=== PATIENT | male | born 1965 | race Caucasian/White ===

== ENCOUNTER 2020-06-18 16:14 | Inpatient (IN) | payer OTHER ==
[2020-06-18 20:00] LABS: BASO % 0.4 % (0-2.0); EOS % 0.1 % (0-4.5); HEMATOCRIT 39.4 % (35.4-49); HEMOGLOBIN 12.6 GM/dL (11.7-16.9); MCH 26.9 pg (25.7-33.7); MCHC 31.8 g/dl (32.0-35.9); MEAN CELL VOLUME 84.6 fl (80-96); MEAN PLT VOLUME 10.2 fl (7.5-11.1); MONO % 5.2 % (3.8-10.2); NEUT % 90.3 % (42.8-82.8); PLATELET COUNT 186 K/MM3 (134-434); RBC 4.66 M/mm3 (4.00-5.60); RDW 16.4 % (11.9-15.9); VENOUS BASE EXCESS 1.5 mmol/L (-2-2); VENOUS PCO2 44.1 mmHg (38-52); VENOUS PH 7.399 (7.310-7.410)
[2020-06-18 20:06] LABS: INR 1.52 (0.83-1.09); PROTHROMBIN TIME (PATIENT) 18.5 SEC (9.7-13.0)
[2020-06-18 20:18] LABS: CHLORIDE 99 mmol/L (98-107); POTASSIUM 4.2 mmol/L (3.5-5.1); SODIUM 135 mmol/L (136-145)
[2020-06-18 20:20] LABS: ALBUMIN 3.5 g/dl (3.4-5.0); ANION GAP 8 MMOL/L (8-16); BLOOD UREA NITROGEN 23.6 mg/dL (7-18); CALCIUM 8.7 mg/dL (8.5-10.1); CO2 28 mmol/L (21-32); GLUCOSE,RANDOM 126 mg/dL (74-106)
[2020-06-18 20:23] LABS: SGOT/AST 22 U/L (15-37); SGPT/ALT 44 U/L (13-61)
[2020-06-18 20:24] LABS: CREATININE 1.7 mg/dL (0.55-1.3)
[2020-06-18 20:25] LABS: BILIRUBIN,TOTAL 0.8 mg/dL (0.2-1); TOT PROT 7.6 g/dl (6.4-8.2)
[2020-06-18 20:26] LABS: ALK PHOS 124 U/L (45-117)
[2020-06-18 21:37] LABS: LDH 198 U/L (87-246)
[2020-06-18 21:54] LABS: N-TERMINAL BNP 356.2 pg/ml (5-125)
[2020-06-18] MEDS ORDERED: DEXAMETHASONE SOD PHOSPHATE 4 MG/1 ML VIAL IVPUSH ONE ×2 (22:48→22:49)
[2020-06-18] MEDS ORDERED: DEXAMETHASONE SOD PHOSPHATE 10 MG/1 ML VIAL ONE (23:09)
[2020-06-19] MEDS ORDERED: ACETAMINOPHEN 325 MG TABLET (FP) PO PRN (00:37)
[2020-06-19] MEDS ORDERED: FUROSEMIDE 40 MG/4 ML INJECTABLE VIAL IVPUSH ONE (00:40)
[2020-06-19] MEDS ORDERED: AZITHROMYCIN IVPB 500 MG in DEXTROSE 5%-WATER - 250 ML IVPB ONE (00:44)
[2020-06-19] MEDS ORDERED: CEFTRIAXONE 1 GM/50 ML BAG ONE (01:08)
[2020-06-19] MEDS ORDERED: FUROSEMIDE 40 MG/4 ML INJECTABLE VIAL ONE (01:09)
[2020-06-19] MEDS ORDERED: AZITHROMYCIN IVPB 500 MG/250 ML BAG IVPB ONE (01:09)
[2020-06-19] MEDS ORDERED: CEFTRIAXONE 1 GM in DEXTROSE 5%-WATER - 50 ML IVPB ONE (01:11)
[2020-06-19] MEDS: CEFTRIAXONE 1,000 MG in DEXTROSE 5%-WATER - 50 ML IVPB ONE ×2 (01:23→01:53)
[2020-06-19] MEDS ORDERED: ALBUTEROL SO4 0.083% IH SOL 2.5 MG/3 ML VIAL.NEB. NEB PRN (01:40)
[2020-06-19 01:49] LABS: URINE APPEARANCE CLEAR; URINE BILIRUBIN NEGATIVE (NEGATIVE); URINE COLOR YELLOW; URINE GLUCOSE (UA) NEGATIVE (NEGATIVE); URINE KETONE TRACE (NEGATIVE); URINE LEUK ESTERASE NEGATIVE (NEGATIVE); URINE NITRITE NEGATIVE (NEGATIVE); URINE PROTEIN TRACE (NEGATIVE); URINE UROBILINOGEN 0.2 mg/dL (0.2-1.0)
[2020-06-19 03:58] LABS: CREATININE, URINE RANDOM > 300.0 mg/dL (30-150)
[2020-06-19] MEDS ORDERED: HEPARIN NA (PORCINE) 5,000 UNITS/ML 1ML VIAL SQ SCH (06:00)
[2020-06-19] MEDS ORDERED: APIXABAN 5 MG TABLET ONE ×2 (08:13→21:31)
[2020-06-19] MEDS ORDERED: ASCORBIC ACID 500 MG TABLET (FP) ONE ×2 (08:13→21:31)
[2020-06-19] MEDS ORDERED: CHOLECALCIFEROL (VIT D3) 1,000 UNIT (25 MCG) TABLET ONE (08:14)
[2020-06-19] MEDS ORDERED: DEXAMETHASONE SOD PHOSPHATE 4 MG/1 ML VIAL ONE (08:14)
[2020-06-19] MEDS ORDERED: ZINC SULFATE 220 MG CAPSULE (FP) ONE (08:14)
[2020-06-19 08:16] LABS: POTASSIUM 4.1 mmol/L (3.5-5.1)
[2020-06-19 08:19] LABS: BASO % 0.2 % (0-2.0); HEMATOCRIT 37.9 % (35.4-49); HEMOGLOBIN 12.6 GM/dL (11.7-16.9); MCH 27.8 pg (25.7-33.7); MCHC 33.3 g/dl (32.0-35.9); MEAN CELL VOLUME 83.5 fl (80-96); MEAN PLT VOLUME 9.9 fl (7.5-11.1); MONO % 0.9 % (3.8-10.2); NEUT % 94.9 % (42.8-82.8); PLATELET COUNT 175 K/MM3 (134-434); RBC 4.54 M/mm3 (4.00-5.60); RDW 16.1 % (11.9-15.9); WHITE BLOOD COUNT 11.6 K/mm3 (4.0-10.0)
[2020-06-19 08:20] LABS: ALBUMIN 3.3 g/dl (3.4-5.0); BLOOD UREA NITROGEN 24.3 mg/dL (7-18); CALCIUM 8.3 mg/dL (8.5-10.1); MAGNESIUM 1.8 mg/dL (1.8-2.4)
[2020-06-19 08:23] LABS: CREATININE 1.4 mg/dL (0.55-1.3); PHOSPHOROUS 3.2 mg/dL (2.5-4.9)
[2020-06-19 08:25] LABS: BILIRUBIN,TOTAL 0.6 mg/dL (0.2-1); TOT PROT 7.5 g/dl (6.4-8.2)
[2020-06-19] MEDS: CHOLECALCIFEROL (VIT D3) 1,000 UNIT (25 MCG) TABLET PO SCH (09:12)
[2020-06-19] MEDS: APIXABAN 5 MG TABLET PO SCH ×2 (09:12→21:35)
[2020-06-19] MEDS: ZINC SULFATE 220 MG CAPSULE (FP) PO SCH (09:12)
[2020-06-19] MEDS: ASCORBIC ACID 500 MG TABLET (FP) PO SCH ×2 (09:12→21:35)
[2020-06-19 09:46] LABS: ANISOCYTOSIS 1+; PLATELET ESTIMATE NORMAL
[2020-06-19] MEDS ORDERED: DEXAMETHASONE SOD PHOSPHATE 4 MG/1 ML VIAL IVPUSH SCH (10:00)
[2020-06-19] MEDS: TIOTROPIUM BROMIDE 2.5 MCG (SPIRIVA) RESPIMAT INHALER IH SCH (10:06)
[2020-06-19] MEDS ORDERED: ATORVASTATIN CA 10 MG TABLET (FP) ONE (21:32)
[2020-06-19] MEDS: ATORVASTATIN CA 80 MG TABLET (FP) PO SCH (21:35)
[2020-06-19 23:29] VITALS: BMI 39.9
[2020-06-20 09:08] LABS: BASO % 0.1 % (0-2.0); EOS % 0.1 % (0-4.5); HEMATOCRIT 37.1 % (35.4-49); HEMOGLOBIN 12.1 GM/dL (11.7-16.9); LYMPH % 6.9 % (8-40); MCH 27.5 pg (25.7-33.7); MCHC 32.7 g/dl (32.0-35.9); MEAN PLT VOLUME 9.4 fl (7.5-11.1); MONO % 7.6 % (3.8-10.2); NEUT % 85.3 % (42.8-82.8); PLATELET COUNT 182 K/MM3 (134-434); RBC 4.42 M/mm3 (4.00-5.60); WHITE BLOOD COUNT 13.8 K/mm3 (4.0-10.0)
[2020-06-20 09:18] LABS: POTASSIUM 4.2 mmol/L (3.5-5.1)
[2020-06-20 09:36] LABS: CALCIUM 8.6 mg/dL (8.5-10.1)
[2020-06-20 09:38] LABS: TOT PROT 6.9 g/dl (6.4-8.2)
[2020-06-20 09:40] LABS: CREATININE 1.1 mg/dL (0.55-1.3)
[2020-06-20] MEDS ORDERED: cefTRIAXone SODIUM 1 GM VIAL ONE (09:41)
[2020-06-20] MEDS ORDERED: DEXTROSE 5%-WATER - 50 ML IVPB ONE (09:41)
[2020-06-20 09:43] LABS: BILIRUBIN,TOTAL 0.3 mg/dL (0.2-1)
[2020-06-20] MEDS: APIXABAN 5 MG TABLET PO SCH ×2 (09:46→21:56)
[2020-06-20] MEDS: ASCORBIC ACID 500 MG TABLET (FP) PO SCH ×2 (09:46→21:56)
[2020-06-20] MEDS: CEFTRIAXONE 1 GM in DEXTROSE 5%-WATER - 50 ML IVPB SCH (09:46)
[2020-06-20] MEDS: CHOLECALCIFEROL (VIT D3) 1,000 UNIT (25 MCG) TABLET PO SCH (09:46)
[2020-06-20] MEDS: TIOTROPIUM BROMIDE 2.5 MCG (SPIRIVA) RESPIMAT INHALER IH SCH (09:47)
[2020-06-20] MEDS: ZINC SULFATE 220 MG CAPSULE (FP) PO SCH (09:47)
[2020-06-20] MEDS ORDERED: AZITHROMYCIN IVPB 500 MG in DEXTROSE 5%-WATER - 250 ML IVPB SCH (10:00)
[2020-06-20] MEDS ORDERED: PT OWN MED DRAWER 7, Y5N ONE (12:37)
[2020-06-20] MEDS: AZITHROMYCIN IVPB 500 MG/250 ML BAG IVPB SCH (13:54)
[2020-06-20] MEDS: ATORVASTATIN CA 80 MG TABLET (FP) PO SCH (21:57)
[2020-06-21 08:19] LABS: HEMOGLOBIN 11.8 GM/dL (11.7-16.9); MCH 27.5 pg (25.7-33.7); MCHC 32.7 g/dl (32.0-35.9); MEAN CELL VOLUME 84.2 fl (80-96); MEAN PLT VOLUME 9.2 fl (7.5-11.1); PLATELET COUNT 164 K/MM3 (134-434); RBC 4.27 M/mm3 (4.00-5.60); RDW 16.3 % (11.9-15.9)
[2020-06-21] MEDS ORDERED: cefTRIAXone SODIUM 1 GM VIAL ONE (08:28)
[2020-06-21] MEDS ORDERED: DEXTROSE 5%-WATER - 50 ML IVPB ONE (08:29)
[2020-06-21] MEDS: CEFTRIAXONE 1 GM in DEXTROSE 5%-WATER - 50 ML IVPB SCH (09:18)
[2020-06-21] MEDS: ZINC SULFATE 220 MG CAPSULE (FP) PO SCH (09:19)
[2020-06-21] MEDS: CHOLECALCIFEROL (VIT D3) 1,000 UNIT (25 MCG) TABLET PO SCH (09:19)
[2020-06-21] MEDS: ASCORBIC ACID 500 MG TABLET (FP) PO SCH (09:19)
[2020-06-21] MEDS: APIXABAN 5 MG TABLET PO SCH (09:20)
[2020-06-21] MEDS: AZITHROMYCIN IVPB 500 MG/250 ML BAG IVPB SCH (10:50)
[2020-06-21] MEDS: TIOTROPIUM BROMIDE 2.5 MCG (SPIRIVA) RESPIMAT INHALER IH SCH (12:55)
[2020-06-21] MEDS: CLOTRIMAZOLE 10 MG TROCHE PO SCH ×3 (12:56→17:20)
[2020-06-21 14:46] VITALS: BP 131/63; PULSE 70
[2020-06-21 17:12] VITALS: TEMP 98.2
== END 2020-06-21 18:43 | disposition home or self-care (01) | DRG 720 ==
LOC: JER 16:14 → JERBED 23:44 → J7W 06-19 22:51
PROVIDERS: ADMIT Hospitalist; ATTEND Internal Medicine
DX: A41.9 Sepsis, unspecified organism (principal); J15.9 Unspecified bacterial pneumonia; N17.9 Acute kidney failure, unspecified; I11.0 Hypertensive heart disease with heart failure; I50.9 Heart failure, unspecified; Z68.41 Body mass index [BMI] 40.0-44.9, adult; E66.9 Obesity, unspecified; N28.1 Cyst of kidney, acquired; J44.9 Chronic obstructive pulmonary disease, unspecified; Z86.711 Personal history of pulmonary embolism; Z79.01 Long term (current) use of anticoagulants; R73.03 Prediabetes; E78.5 Hyperlipidemia, unspecified; K76.0 Fatty (change of) liver, not elsewhere classified; Z20.822 Contact with and (suspected) exposure to COVID-19
CPT/HCPCS: 36415; 71046-TC-FY; 76775-TC; 80053; 81003; 82550; 82570; 82728; 82803; 83605; 83615; 83735; 83880; 84100; 84156; 84300; 84484; 85025; 85027; 85379; 85610; 85730; 86140; 86769; 87040; 87086; 87804; 87899; 93005; 93010; 93306-TC; 97116-GP; 97161-GP; 99285-25; C9803; U0003; U0005

== ENCOUNTER 2021-10-22 11:38 | Inpatient (IN) | payer OTHER ==
[2021-10-22] MEDS ORDERED: methylPREDNISolone NA SUCC 125 MG/2 ML VIAL IVPUSH ONE (12:23)
[2021-10-22] MEDS ORDERED: methylPREDNISolone NA SUCC 125 MG/2 ML VIAL ONE (12:50)
[2021-10-22] MEDS: ALBUTEROL SO4 2.5/IPRATROPIUM 0.5 INH SOL 3 ML VIAL.NEB. NEB SCH ×3 (13:01→20:37)
[2021-10-22] MEDS ORDERED: FUROSEMIDE 40 MG/4 ML INJECTABLE VIAL IVPUSH ONE (13:14)
[2021-10-22 13:21] LABS: BASO % 0.6 % (0-2.0); EOS % 0.3 % (0-4.5); HEMATOCRIT 38.7 % (35.4-49); HEMOGLOBIN 12.2 GM/dL (11.7-16.9); LYMPH % 6.1 % (8-40); MCH 26.3 pg (25.7-33.7); MCHC 31.6 g/dl (32.0-35.9); MEAN CELL VOLUME 83.3 fl (80-96); MEAN PLT VOLUME 9.6 fl (7.5-11.1); MONO % 5.2 % (3.8-10.2); NEUT % 87.8 % (42.8-82.8); PLATELET COUNT 201 10^3/uL (134-434); RBC 4.64 M/mm3 (4.00-5.60); RDW 16.7 % (11.9-15.9); WHITE BLOOD COUNT 13.7 K/mm3 (4.0-10.0)
[2021-10-22 13:42] LABS: ALBUMIN 2.9 g/dl (3.4-5.0); CALCIUM 8.6 mg/dL (8.5-10.1)
[2021-10-22 13:43] LABS: BLOOD UREA NITROGEN 23.1 mg/dL (7-18)
[2021-10-22 13:46] LABS: CREATININE 1.2 mg/dL (0.55-1.3)
[2021-10-22 13:47] LABS: BILIRUBIN,TOTAL 1.1 mg/dL (0.2-1); TOT PROT 6.3 g/dl (6.4-8.2)
[2021-10-22 13:50] LABS: N-TERMINAL BNP 128.1 pg/ml (5-125)
[2021-10-22] MEDS ORDERED: FUROSEMIDE 40 MG/4 ML INJECTABLE VIAL ONE ×2 (13:54→20:29)
[2021-10-22] MEDS ORDERED: AZITHROMYCIN IVPB 500 MG in DEXTROSE 5%-WATER - 250 ML IVPB ONE (14:21)
[2021-10-22] MEDS ORDERED: CEFTRIAXONE 1,000 MG in DEXTROSE 5%-WATER - 50 ML IVPB ONE (14:43)
[2021-10-22] MEDS ORDERED: CEFTRIAXONE 1 GM/50 ML BAG ONE (14:43)
[2021-10-22] MEDS ORDERED: AZITHROMYCIN IVPB 500 MG/250 ML BAG IVPB ONE (14:44)
[2021-10-22] MEDS ORDERED: ALBUTEROL SO4 HFA INHALER IH PRN (16:01)
[2021-10-22] MEDS ORDERED: ACETAMINOPHEN 325 MG TABLET (FP) PO PRN (17:10)
[2021-10-22] MEDS ORDERED: ALBUTEROL SO4 2.5/IPRATROPIUM 0.5 INH SOL 3 ML VIAL.NEB. NEB SCH (17:15)
[2021-10-22] MEDS ORDERED: methylPREDNISolone NA SUCC 40 MG/1 ML VIAL ONE (18:00)
[2021-10-22] MEDS: methylPREDNISolone NA SUCC 40 MG/1 ML VIAL IVPUSH SCH (18:15)
[2021-10-22] MEDS ORDERED: ALBUTEROL SO4 2.5/IPRATROPIUM 0.5 INH SOL 3 ML VIAL.NEB. NEB ONE (20:28)
[2021-10-22] MEDS: FUROSEMIDE 40 MG/4 ML INJECTABLE VIAL IVPUSH SCH (20:37)
[2021-10-22] MEDS ORDERED: APIXABAN 5 MG TABLET ONE (23:15)
[2021-10-22] MEDS ORDERED: ATORVASTATIN CA 80 MG TABLET (FP) ONE (23:15)
[2021-10-22] MEDS: APIXABAN 5 MG TABLET PO SCH (23:32)
[2021-10-22] MEDS: ATORVASTATIN CA 80 MG TABLET (FP) PO SCH (23:33)
[2021-10-23] MEDS: INSULIN SLIDING SCALE (NOVOLOG) 1 VIAL SQ SCH ×5 (00:30→21:57)
[2021-10-23] MEDS ORDERED: methylPREDNISolone NA SUCC 40 MG/1 ML VIAL ONE ×3 (04:27→21:06)
[2021-10-23] MEDS: methylPREDNISolone NA SUCC 40 MG/1 ML VIAL IVPUSH SCH ×3 (04:36→19:30)
[2021-10-23] MEDS: ALBUTEROL SO4 2.5/IPRATROPIUM 0.5 INH SOL 3 ML VIAL.NEB. NEB SCH ×4 (09:27→21:30)
[2021-10-23] MEDS: CEFTRIAXONE 1 GM in DEXTROSE 5%-WATER - 50 ML IVPB SCH (10:00)
[2021-10-23] MEDS: FUROSEMIDE 40 MG/4 ML INJECTABLE VIAL IVPUSH SCH (10:00)
[2021-10-23] MEDS: AZITHROMYCIN IVPB 250 MG in DEXTROSE 5%-WATER - 250 ML IVPB SCH (10:00)
[2021-10-23] MEDS: APIXABAN 5 MG TABLET PO SCH ×2 (10:00→21:30)
[2021-10-23] MEDS ORDERED: TIOTROPIUM BROMIDE 2.5 MCG (SPIRIVA) RESPIMAT INHALER IH SCH (10:00)
[2021-10-23] MEDS ORDERED: FUROSEMIDE 40 MG TABLET (FP) PO SCH (10:00)
[2021-10-23] MEDS ORDERED: BUDESONIDE/FORMETEROL FUMARATE 160/4.5 mcg INHALER IH SCH (10:00)
[2021-10-23] MEDS: ENALAPRIL MALEATE 10 MG TABLET PO SCH (10:00)
[2021-10-23] MEDS: PANTOPRAZOLE 40 MG TABLET PO SCH (10:00)
[2021-10-23 10:04] LABS: HEMATOCRIT 39.1 % (35.4-49); HEMOGLOBIN 12.5 GM/dL (11.7-16.9); MCH 26.3 pg (25.7-33.7); MCHC 31.9 g/dl (32.0-35.9); MEAN CELL VOLUME 82.6 fl (80-96); MEAN PLT VOLUME 9.2 fl (7.5-11.1); PLATELET COUNT 220 10^3/uL (134-434); RBC 4.73 M/mm3 (4.00-5.60); RDW 16.5 % (11.9-15.9)
[2021-10-23 10:29] LABS: ALBUMIN 3.2 g/dl (3.4-5.0); BLOOD UREA NITROGEN 27.2 mg/dL (7-18); CALCIUM 8.8 mg/dL (8.5-10.1); MAGNESIUM 2.3 mg/dL (1.8-2.4)
[2021-10-23 10:30] LABS: PHOSPHOROUS 2.8 mg/dL (2.5-4.9)
[2021-10-23 10:32] LABS: BILIRUBIN,TOTAL 0.5 mg/dL (0.2-1); CREATININE 1.1 mg/dL (0.55-1.3); TOT PROT 7.1 g/dl (6.4-8.2)
[2021-10-23 10:51] LABS: ANISOCYTOSIS 0; MACROCYTOSIS 0
[2021-10-23] MEDS ORDERED: AZITHROMYCIN IVPB 500 MG/250 ML BAG IVPB ONE (11:15)
[2021-10-23] MEDS ORDERED: FUROSEMIDE 40 MG/4 ML INJECTABLE VIAL ONE (11:17)
[2021-10-23] MEDS ORDERED: PANTOPRAZOLE 40 MG TABLET PO ONE (11:18)
[2021-10-23] MEDS ORDERED: CEFTRIAXONE 1 GM/50 ML BAG ONE (11:20)
[2021-10-23] MEDS ORDERED: ALBUTEROL SO4 2.5/IPRATROPIUM 0.5 INH SOL 3 ML VIAL.NEB. NEB ONE ×3 (11:21→21:35)
[2021-10-23] MEDS ORDERED: ALBUTEROL SO4 2.5/IPRATROPIUM 0.5 INH SOL 3 ML VIAL.NEB. NEB PRN (18:00)
[2021-10-23] MEDS ORDERED: APIXABAN 5 MG TABLET ONE (21:05)
[2021-10-23] MEDS ORDERED: ATORVASTATIN CA 80 MG TABLET (FP) ONE (21:06)
[2021-10-23] MEDS: ATORVASTATIN CA 80 MG TABLET (FP) PO SCH (21:30)
[2021-10-24] MEDS: methylPREDNISolone NA SUCC 40 MG/1 ML VIAL IVPUSH SCH ×3 (02:11→18:08)
[2021-10-24] MEDS: INSULIN SLIDING SCALE (NOVOLOG) 1 VIAL SQ SCH ×4 (06:56→21:41)
[2021-10-24 08:20] LABS: HEMATOCRIT 39.2 % (35.4-49); HEMOGLOBIN 12.3 GM/dL (11.7-16.9); MCHC 31.4 g/dl (32.0-35.9); MEAN PLT VOLUME 9.2 fl (7.5-11.1); PLATELET COUNT 219 10^3/uL (134-434); RBC 4.72 M/mm3 (4.00-5.60); RDW 16.2 % (11.9-15.9); WHITE BLOOD COUNT 14.8 K/mm3 (4.0-10.0)
[2021-10-24] MEDS: ALBUTEROL SO4 2.5/IPRATROPIUM 0.5 INH SOL 3 ML VIAL.NEB. NEB SCH ×4 (08:33→20:15)
[2021-10-24] MEDS: AZITHROMYCIN IVPB 250 MG in DEXTROSE 5%-WATER - 250 ML IVPB SCH (09:12)
[2021-10-24 09:41] LABS: ALBUMIN 3.1 g/dl (3.4-5.0); BLOOD UREA NITROGEN 29.4 mg/dL (7-18)
[2021-10-24 09:42] LABS: CALCIUM 8.9 mg/dL (8.5-10.1)
[2021-10-24 09:43] LABS: CREATININE 1.2 mg/dL (0.55-1.3)
[2021-10-24 09:44] LABS: BILIRUBIN,TOTAL 0.4 mg/dL (0.2-1); MAGNESIUM 2.4 mg/dL (1.8-2.4); TOT PROT 7.1 g/dl (6.4-8.2)
[2021-10-24] MEDS: PANTOPRAZOLE 40 MG TABLET PO SCH (10:23)
[2021-10-24] MEDS: APIXABAN 5 MG TABLET PO SCH ×2 (10:23→21:38)
[2021-10-24] MEDS: ENALAPRIL MALEATE 10 MG TABLET PO SCH (10:23)
[2021-10-24] MEDS: CEFTRIAXONE 1 GM in DEXTROSE 5%-WATER - 50 ML IVPB SCH (10:23)
[2021-10-24] MEDS: FUROSEMIDE 40 MG/4 ML INJECTABLE VIAL IVPUSH SCH (10:23)
[2021-10-24 10:33] LABS: ANISOCYTOSIS 0; HELMET CELLS 0; HOWELL-JOLLY BODIES 0; MACROCYTOSIS 0; OVALOCYTE 0; ROULEAU 0; SICKELED CELLS 0; TARGET CELLS 0; TEAR DROP CELLS 0; TOXIC GRANULATION 0
[2021-10-24 12:29] VITALS: BMI 42.3
[2021-10-24] MEDS: ATORVASTATIN CA 80 MG TABLET (FP) PO SCH (21:38)
[2021-10-25] MEDS: methylPREDNISolone NA SUCC 40 MG/1 ML VIAL IVPUSH SCH ×3 (01:48→21:13)
[2021-10-25] MEDS: INSULIN SLIDING SCALE (NOVOLOG) 1 VIAL SQ SCH ×4 (06:25→21:19)
[2021-10-25] MEDS: ALBUTEROL SO4 2.5/IPRATROPIUM 0.5 INH SOL 3 ML VIAL.NEB. NEB SCH ×4 (07:41→20:19)
[2021-10-25 08:37] LABS: HEMATOCRIT 37.2 % (35.4-49); HEMOGLOBIN 12.1 GM/dL (11.7-16.9); MCH 27.1 pg (25.7-33.7); MCHC 32.6 g/dl (32.0-35.9); MEAN PLT VOLUME 9.1 fl (7.5-11.1); PLATELET COUNT 197 10^3/uL (134-434); RBC 4.48 M/mm3 (4.00-5.60); RDW 16.5 % (11.9-15.9); WHITE BLOOD COUNT 12.7 K/mm3 (4.0-10.0)
[2021-10-25 09:18] LABS: BLOOD UREA NITROGEN 29.4 mg/dL (7-18); CALCIUM 8.5 mg/dL (8.5-10.1); MAGNESIUM 2.5 mg/dL (1.8-2.4)
[2021-10-25 09:21] LABS: CREATININE 1.1 mg/dL (0.55-1.3)
[2021-10-25 09:23] LABS: BILIRUBIN,TOTAL 0.4 mg/dL (0.2-1); TOT PROT 6.7 g/dl (6.4-8.2)
[2021-10-25] MEDS: FUROSEMIDE 40 MG/4 ML INJECTABLE VIAL IVPUSH SCH (09:38)
[2021-10-25] MEDS: APIXABAN 5 MG TABLET PO SCH ×2 (09:38→21:12)
[2021-10-25] MEDS: ENALAPRIL MALEATE 10 MG TABLET PO SCH (09:39)
[2021-10-25] MEDS: CEFTRIAXONE 1 GM in DEXTROSE 5%-WATER - 50 ML IVPB SCH (09:39)
[2021-10-25] MEDS: PANTOPRAZOLE 40 MG TABLET PO SCH (09:39)
[2021-10-25] MEDS: AZITHROMYCIN IVPB 250 MG in DEXTROSE 5%-WATER - 250 ML IVPB SCH (10:30)
[2021-10-25 10:55] LABS: ANISOCYTOSIS 0; MACROCYTOSIS 0; PLATELET ESTIMATE NORMAL
[2021-10-25] MEDS: ATORVASTATIN CA 80 MG TABLET (FP) PO SCH (21:12)
[2021-10-26] MEDS: INSULIN SLIDING SCALE (NOVOLOG) 1 VIAL SQ SCH ×4 (06:52→21:10)
[2021-10-26 07:21] LABS: BASO % 0.1 % (0-2.0); HEMATOCRIT 41.4 % (35.4-49); HEMOGLOBIN 13.4 GM/dL (11.7-16.9); LYMPH % 5.8 % (8-40); MCH 26.9 pg (25.7-33.7); MCHC 32.4 g/dl (32.0-35.9); MEAN PLT VOLUME 9.2 fl (7.5-11.1); MONO % 4.7 % (3.8-10.2); NEUT % 89.4 % (42.8-82.8); PLATELET COUNT 221 10^3/uL (134-434); RBC 4.99 M/mm3 (4.00-5.60); RDW 16.4 % (11.9-15.9); WHITE BLOOD COUNT 11.3 K/mm3 (4.0-10.0)
[2021-10-26 07:43] LABS: CALCIUM 8.8 mg/dL (8.5-10.1)
[2021-10-26 07:44] LABS: ALBUMIN 3.2 g/dl (3.4-5.0); BLOOD UREA NITROGEN 28.2 mg/dL (7-18); MAGNESIUM 2.4 mg/dL (1.8-2.4)
[2021-10-26 07:47] LABS: CREATININE 1.2 mg/dL (0.55-1.3)
[2021-10-26 07:49] LABS: BILIRUBIN,TOTAL 0.9 mg/dL (0.2-1); TOT PROT 7.2 g/dl (6.4-8.2)
[2021-10-26] MEDS: ALBUTEROL SO4 2.5/IPRATROPIUM 0.5 INH SOL 3 ML VIAL.NEB. NEB SCH ×4 (08:28→20:15)
[2021-10-26] MEDS: PANTOPRAZOLE 40 MG TABLET PO SCH (09:30)
[2021-10-26] MEDS: methylPREDNISolone NA SUCC 40 MG/1 ML VIAL IVPUSH SCH (09:30)
[2021-10-26] MEDS: FUROSEMIDE 40 MG/4 ML INJECTABLE VIAL IVPUSH SCH (09:30)
[2021-10-26] MEDS: APIXABAN 5 MG TABLET PO SCH ×2 (09:30→21:09)
[2021-10-26] MEDS: ENALAPRIL MALEATE 10 MG TABLET PO SCH (09:30)
[2021-10-26] MEDS: CEFTRIAXONE 1 GM in DEXTROSE 5%-WATER - 50 ML IVPB SCH (09:30)
[2021-10-26] MEDS: AZITHROMYCIN IVPB 250 MG in DEXTROSE 5%-WATER - 250 ML IVPB SCH (10:21)
[2021-10-26] MEDS ORDERED: ALBUTEROL SO4 2.5/IPRATROPIUM 0.5 INH SOL 3 ML VIAL.NEB. NEB PRN (14:22)
[2021-10-26] MEDS ORDERED: ACETAMINOPHEN 325 MG TABLET (FP) PO PRN (14:22)
[2021-10-26 18:49] VITALS: RESP 18
[2021-10-26] MEDS ORDERED: ATORVASTATIN CA 80 MG TABLET (FP) PO SCH (22:00)
[2021-10-27 05:36] VITALS: TEMP 97.6
[2021-10-27] MEDS: INSULIN SLIDING SCALE (NOVOLOG) 1 VIAL SQ SCH ×2 (07:05→11:23)
[2021-10-27] MEDS: ALBUTEROL SO4 2.5/IPRATROPIUM 0.5 INH SOL 3 ML VIAL.NEB. NEB SCH ×2 (07:53→11:21)
[2021-10-27 09:23] LABS: BASO % 0.2 % (0-2.0); EOS % 1.1 % (0-4.5); HEMATOCRIT 42.8 % (35.4-49); LYMPH % 15.7 % (8-40); MCH 27.1 pg (25.7-33.7); MCHC 32.6 g/dl (32.0-35.9); MEAN PLT VOLUME 8.9 fl (7.5-11.1); PLATELET COUNT 193 10^3/uL (134-434); RBC 5.16 M/mm3 (4.00-5.60); RDW 16.7 % (11.9-15.9); WHITE BLOOD COUNT 9.1 K/mm3 (4.0-10.0)
[2021-10-27 09:36] LABS: ALBUMIN 3.3 g/dl (3.4-5.0); BLOOD UREA NITROGEN 24.4 mg/dL (7-18); CREATININE 1.1 mg/dL (0.55-1.3)
[2021-10-27 09:38] LABS: BILIRUBIN,TOTAL 0.7 mg/dL (0.2-1)
[2021-10-27 09:47] LABS: CALCIUM 8.5 mg/dL (8.5-10.1)
[2021-10-27 09:55] LABS: MAGNESIUM 2.2 mg/dL (1.8-2.4)
[2021-10-27] MEDS ORDERED: PANTOPRAZOLE 40 MG TABLET PO SCH (10:00)
[2021-10-27] MEDS ORDERED: CEFTRIAXONE 1 GM in DEXTROSE 5%-WATER - 50 ML IVPB SCH (10:00)
[2021-10-27] MEDS ORDERED: ENALAPRIL MALEATE 10 MG TABLET PO SCH (10:00)
[2021-10-27] MEDS ORDERED: FUROSEMIDE 40 MG/4 ML INJECTABLE VIAL IVPUSH SCH (10:00)
[2021-10-27] MEDS ORDERED: FUROSEMIDE 40 MG TABLET (FP) PO SCH (10:00)
[2021-10-27] MEDS ORDERED: methylPREDNISolone NA SUCC 40 MG/1 ML VIAL IVPUSH SCH (10:00)
[2021-10-27] MEDS: APIXABAN 5 MG TABLET PO SCH (10:03)
[2021-10-27 13:18] VITALS: BP 140/74; PULSE 100
[2021-10-28] MEDS ORDERED: predniSONE 20 MG TABLET (UD) PO SCH (10:00)
== END 2021-10-27 13:59 | disposition home or self-care (01) | DRG 139 ==
LOC: JER 11:38 → JERBED 13:31 → J4W 10-24 03:00 → J5S 10-26 12:57
PROVIDERS: ADMIT Internal Medicine; ATTEND Nurse Practitioner Acute Care
DX: J18.9 Pneumonia, unspecified organism (principal); I50.33 Acute on chronic diastolic (congestive) heart failure; J44.1 Chronic obstructive pulmonary disease with (acute) exacerbation; I11.0 Hypertensive heart disease with heart failure; E66.01 Morbid (severe) obesity due to excess calories; Z68.41 Body mass index [BMI] 40.0-44.9, adult; J44.0 Chronic obstructive pulmonary disease with (acute) lower respiratory infection; Z86.711 Personal history of pulmonary embolism; Z79.01 Long term (current) use of anticoagulants; E11.9 Type 2 diabetes mellitus without complications; Z79.4 Long term (current) use of insulin
CPT/HCPCS: 0241U-QW; 36415; 71045-TC-FY; 80053; 80061; 82962; 83036; 83735; 83880; 84100; 84443; 84484; 85025; 93005; 93010; 94640; 94761; 99285-25

== ENCOUNTER 2021-11-26 12:51 | Emergency (ER) | payer OTHER ==
[2021-11-26 13:27] VITALS: BP 109/74; PULSE 85; RESP 17; TEMP 97.3; BMI 43.1
[2021-11-26] MEDS ORDERED: FUROSEMIDE 100 MG/10 ML INJECTABLE VIAL IVPB ONE (15:26)
[2021-11-26] MEDS ORDERED: FUROSEMIDE 40 MG/4 ML INJECTABLE VIAL ONE (15:29)
[2021-11-26 15:55] LABS: BASO % 1.1 % (0-2.0); EOS % 1.8 % (0-4.5); HEMATOCRIT 36.7 % (35.4-49); HEMOGLOBIN 11.7 GM/dL (11.7-16.9); LYMPH % 17.9 % (8-40); MCH 26.9 pg (25.7-33.7); MCHC 31.9 g/dl (32.0-35.9); MEAN CELL VOLUME 84.3 fl (80-96); MEAN PLT VOLUME 8.9 fl (7.5-11.1); MONO % 8.3 % (3.8-10.2); NEUT % 70.9 % (42.8-82.8); PLATELET COUNT 228 10^3/uL (134-434); RBC 4.36 M/mm3 (4.00-5.60); RDW 17.5 % (11.9-15.9)
[2021-11-26 16:05] LABS: INR 1.21 (0.83-1.09); PROTHROMBIN TIME (PATIENT) 13.9 SEC (9.7-13.0)
[2021-11-26 16:08] LABS: ACTIVATED PTT 32.2 SECONDS (25.2-36.5)
[2021-11-26 16:18] LABS: CALCIUM 8.7 mg/dL (8.5-10.1)
[2021-11-26 16:19] LABS: ALBUMIN 2.9 g/dl (3.4-5.0); BLOOD UREA NITROGEN 16.8 mg/dL (7-18)
[2021-11-26 16:22] LABS: CREATININE 1.1 mg/dL (0.55-1.3)
[2021-11-26 16:24] LABS: BILIRUBIN,TOTAL 0.4 mg/dL (0.2-1); TOT PROT 6.2 g/dl (6.4-8.2)
[2021-11-26 16:27] LABS: N-TERMINAL BNP 113.9 pg/ml (5-125)
== END 2021-11-26 19:53 | disposition home or self-care (01) ==
LOC: JER 12:51
PROC: 3E033GC Introduction of Other Therapeutic Substance into Peripheral Vein, Percutaneous Approach (ICD-10-PCS; principal; 2021-11-26)
DX: R60.0 Localized edema (principal)
CPT/HCPCS: 36415; 71046-TC-FY; 80053; 83880; 84484; 85025; 85610; 85730; 93005; 93010; 99285-25; C9803-CS; U0003; U0005

== ENCOUNTER 2022-03-10 22:48 | Inpatient (IN) | payer OTHER ==
[2022-03-10] MEDS ORDERED: ALBUTEROL SO4 2.5/IPRATROPIUM 0.5 INH SOL 3 ML VIAL.NEB. NEB ONE ×5 (23:39→23:56)
[2022-03-10] MEDS ORDERED: MAGNESIUM SULF 50% (8.12 MEQ/2 ML-1 GM VIAL) IVPB ONE (23:40)
[2022-03-10] MEDS ORDERED: methylPREDNISolone NA SUCC 125 MG/2 ML VIAL IVPB ONE (23:40)
[2022-03-10] MEDS ORDERED: MAGNESIUM SULFATE IN WATER 2 GM/50 ML IVPB IVPB ONE (23:44)
[2022-03-10] MEDS ORDERED: methylPREDNISolone NA SUCC 125 MG/2 ML VIAL ONE (23:44)
[2022-03-11 00:19] LABS: BASO % 1.1 % (0-2.0); EOS % 2.8 % (0-4.5); HEMATOCRIT 44.6 % (35.4-49); LYMPH % 18.5 % (8-40); MCH 26.9 pg (25.7-33.7); MCHC 31.3 g/dl (32.0-35.9); MEAN CELL VOLUME 85.9 fl (80-96); MEAN PLT VOLUME 8.8 fl (7.5-11.1); MONO % 11.2 % (3.8-10.2); NEUT % 66.4 % (42.8-82.8); PLATELET COUNT 200 10^3/uL (134-434); RBC 5.19 M/mm3 (4.00-5.60); RDW 17.1 % (11.9-15.9); WHITE BLOOD COUNT 7.2 K/mm3 (4.0-10.0)
[2022-03-11 00:27] LABS: INR 1.09 (0.83-1.09); PROTHROMBIN TIME (PATIENT) 12.5 SEC (9.7-13.0)
[2022-03-11 00:29] LABS: ACTIVATED PTT 30.5 SECONDS (25.2-36.5)
[2022-03-11 00:42] LABS: ALBUMIN 3.4 g/dl (3.4-5.0); BLOOD UREA NITROGEN 24.5 mg/dL (7-18); CALCIUM 8.9 mg/dL (8.5-10.1)
[2022-03-11 00:45] LABS: CREATININE 1.6 mg/dL (0.55-1.3)
[2022-03-11] MEDS ORDERED: ALBUTEROL SO4 0.083% IH SOL 2.5 MG/3 ML VIAL.NEB. NEB ONE ×2 (00:46)
[2022-03-11 00:47] LABS: BILIRUBIN,TOTAL 0.3 mg/dL (0.2-1); TOT PROT 7.2 g/dl (6.4-8.2)
[2022-03-11 00:50] LABS: N-TERMINAL BNP 108.5 pg/ml (5-125)
[2022-03-11] MEDS ORDERED: AZITHROMYCIN IVPB 500 MG in DEXTROSE 5%-WATER - 250 ML IVPB ONE (00:54)
[2022-03-11] MEDS ORDERED: CEFTRIAXONE 1,000 MG in DEXTROSE 5%-WATER - 50 ML IVPB ONE (00:55)
[2022-03-11] MEDS ORDERED: CEFTRIAXONE 1 GM/50 ML BAG ONE (01:25)
[2022-03-11 01:37] LABS: VENOUS O2 SATURATION 87.1 % (70-80); VENOUS PCO2 61.1 mmHg (38-52); VENOUS PH 7.296 (7.310-7.410)
[2022-03-11] MEDS ORDERED: AZITHROMYCIN IVPB 500 MG/250 ML BAG IVPB ONE (01:45)
[2022-03-11] MEDS ORDERED: ALBUTEROL SO4 2.5/IPRATROPIUM 0.5 INH SOL 3 ML VIAL.NEB. NEB PRN (03:45)
[2022-03-11] MEDS ORDERED: FUROSEMIDE 40 MG/4 ML INJECTABLE VIAL ONE (06:07)
[2022-03-11 06:21] LABS: CALCIUM 8.5 mg/dL (8.5-10.1)
[2022-03-11] MEDS: FUROSEMIDE 40 MG/4 ML INJECTABLE VIAL IVPUSH SCH ×2 (06:21→14:51)
[2022-03-11 06:22] LABS: ALBUMIN 3.2 g/dl (3.4-5.0); BLOOD UREA NITROGEN 24.9 mg/dL (7-18); MAGNESIUM 2.3 mg/dL (1.8-2.4)
[2022-03-11 06:25] LABS: CREATININE 1.4 mg/dL (0.55-1.3); PHOSPHOROUS 4.5 mg/dL (2.5-4.9)
[2022-03-11 06:26] LABS: BILIRUBIN,TOTAL 0.4 mg/dL (0.2-1)
[2022-03-11 06:57] LABS: HEMATOCRIT 44.3 % (35.4-49); HEMOGLOBIN 13.5 GM/dL (11.7-16.9); MCH 26.4 pg (25.7-33.7); MCHC 30.5 g/dl (32.0-35.9); MEAN CELL VOLUME 86.4 fl (80-96); MEAN PLT VOLUME 9.5 fl (7.5-11.1); PLATELET COUNT 191 10^3/uL (134-434); RBC 5.13 M/mm3 (4.00-5.60); RDW 16.5 % (11.9-15.9); WHITE BLOOD COUNT 8.3 K/mm3 (4.0-10.0)
[2022-03-11 07:54] VITALS: BMI 43.2
[2022-03-11] MEDS: INSULIN SLIDING SCALE (NOVOLOG) 1 VIAL SQ SCH ×4 (08:01→23:22)
[2022-03-11] MEDS: LEVALBUTEROL HCL 0.63 MG/3 ML VIAL.NEB. IH SCH ×3 (09:54→20:06)
[2022-03-11] MEDS ORDERED: AZITHROMYCIN IVPB 500 MG in DEXTROSE 5%-WATER - 250 ML IVPB SCH (10:00)
[2022-03-11] MEDS: AZITHROMYCIN IVPB 500 MG/250 ML BAG IVPB SCH (10:04)
[2022-03-11] MEDS: methylPREDNISolone NA SUCC 40 MG/1 ML VIAL IVPUSH SCH ×2 (10:05→17:06)
[2022-03-11] MEDS: APIXABAN 5 MG TABLET PO SCH ×2 (10:05→23:01)
[2022-03-11] MEDS ORDERED: INSULIN (NOVOLOG) ASPART 100 UNITS/ML 10ML VIAL ONE ×2 (11:10→23:15)
[2022-03-11 11:21] LABS: ANISOCYTOSIS 0; MACROCYTOSIS 0
[2022-03-11] MEDS: BUDESONIDE/FORMETEROL FUMARATE 160/4.5 mcg INHALER IH SCH ×2 (11:33→23:01)
[2022-03-11] MEDS ORDERED: ATORVASTATIN CA 40 MG TABLET (FP) PO SCH (22:00)
[2022-03-11] MEDS ORDERED: ATORVASTATIN CA 80 MG TABLET (FP) PO SCH (22:00)
[2022-03-12] MEDS: methylPREDNISolone NA SUCC 40 MG/1 ML VIAL IVPUSH SCH ×3 (02:34→17:50)
[2022-03-12] MEDS: FUROSEMIDE 40 MG/4 ML INJECTABLE VIAL IVPUSH SCH ×2 (07:08→14:59)
[2022-03-12] MEDS: INSULIN SLIDING SCALE (NOVOLOG) 1 VIAL SQ SCH ×4 (07:59→21:02)
[2022-03-12] MEDS: LEVALBUTEROL HCL 0.63 MG/3 ML VIAL.NEB. IH SCH ×3 (08:30→20:05)
[2022-03-12] MEDS: BUDESONIDE/FORMETEROL FUMARATE 160/4.5 mcg INHALER IH SCH ×2 (10:38→22:48)
[2022-03-12] MEDS: APIXABAN 5 MG TABLET PO SCH ×2 (10:38→22:45)
[2022-03-12] MEDS: AZITHROMYCIN IVPB 500 MG/250 ML BAG IVPB SCH (10:38)
[2022-03-12 10:48] LABS: HEMATOCRIT 45.5 % (35.4-49); MCH 26.3 pg (25.7-33.7); MCHC 30.7 g/dl (32.0-35.9); MEAN CELL VOLUME 85.7 fl (80-96); MEAN PLT VOLUME 8.9 fl (7.5-11.1); PLATELET COUNT 193 10^3/uL (134-434); RBC 5.31 M/mm3 (4.00-5.60); RDW 16.7 % (11.9-15.9); WHITE BLOOD COUNT 9.7 K/mm3 (4.0-10.0)
[2022-03-12 11:06] LABS: CHLORIDE 94 mmol/L (98-107); SODIUM 135 mmol/L (136-145)
[2022-03-12 11:14] LABS: ALBUMIN 3.5 g/dl (3.4-5.0); ANION GAP 13 MMOL/L (8-16); BLOOD UREA NITROGEN 36.8 mg/dL (7-18); CALCIUM 8.9 mg/dL (8.5-10.1); CO2 28 mmol/L (21-32); MAGNESIUM 2.2 mg/dL (1.8-2.4)
[2022-03-12 11:17] LABS: CREATININE 1.3 mg/dL (0.55-1.3); SGPT/ALT 95 U/L (13-61)
[2022-03-12 11:18] LABS: SGOT/AST 35 U/L (15-37)
[2022-03-12 11:19] LABS: ALK PHOS 129 U/L (45-117); BILIRUBIN,TOTAL 0.4 mg/dL (0.2-1); GLUCOSE,RANDOM 420 mg/dL (74-106); TOT PROT 7.5 g/dl (6.4-8.2)
[2022-03-12 12:10] LABS: PH,URINE 5.5 (5.0-8.0); URINE APPEARANCE CLEAR; URINE BILIRUBIN NEGATIVE (NEGATIVE); URINE COLOR YELLOW; URINE GLUCOSE (UA) 3+ (NEGATIVE); URINE KETONE NEGATIVE (NEGATIVE); URINE LEUK ESTERASE NEGATIVE (NEGATIVE); URINE NITRITE NEGATIVE (NEGATIVE); URINE PROTEIN NEGATIVE (NEGATIVE); URINE UROBILINOGEN 0.2 mg/dL (0.2-1.0)
[2022-03-12] MEDS ORDERED: INSULIN (NOVOLOG) ASPART 100 UNITS/ML 10ML VIAL ONE (12:18)
[2022-03-12] MEDS ORDERED: INSULIN (NOVOLOG) ASPART 100 UNITS/ML 10ML VIAL SQ ONE (22:14)
[2022-03-12] MEDS: INSULIN (LEVEMIR) 100 UNITS/ML UNITS SQ SCH (22:47)
[2022-03-13] MEDS: methylPREDNISolone NA SUCC 40 MG/1 ML VIAL IVPUSH SCH ×3 (02:29→17:10)
[2022-03-13] MEDS: FUROSEMIDE 40 MG/4 ML INJECTABLE VIAL IVPUSH SCH ×2 (06:57→13:51)
[2022-03-13] MEDS: INSULIN (LEVEMIR) 100 UNITS/ML UNITS SQ SCH ×2 (07:01→21:49)
[2022-03-13] MEDS: INSULIN SLIDING SCALE (NOVOLOG) 1 VIAL SQ SCH ×4 (07:03→21:50)
[2022-03-13] MEDS: LEVALBUTEROL HCL 0.63 MG/3 ML VIAL.NEB. IH SCH ×3 (08:07→20:07)
[2022-03-13 10:34] LABS: HEMOGLOBIN 14.9 GM/dL (11.7-16.9); MCH 26.5 pg (25.7-33.7); MCHC 30.9 g/dl (32.0-35.9); MEAN CELL VOLUME 85.5 fl (80-96); MEAN PLT VOLUME 9.3 fl (7.5-11.1); PLATELET COUNT 213 10^3/uL (134-434); RBC 5.61 M/mm3 (4.00-5.60); RDW 16.3 % (11.9-15.9)
[2022-03-13 11:05] LABS: ALBUMIN 3.8 g/dl (3.4-5.0); BLOOD UREA NITROGEN 34.7 mg/dL (7-18); CALCIUM 8.9 mg/dL (8.5-10.1); MAGNESIUM 2.4 mg/dL (1.8-2.4)
[2022-03-13 11:07] LABS: CREATININE 1.3 mg/dL (0.55-1.3); PHOSPHOROUS 4.2 mg/dL (2.5-4.9)
[2022-03-13 11:09] LABS: BILIRUBIN,TOTAL 0.6 mg/dL (0.2-1); TOT PROT 7.9 g/dl (6.4-8.2)
[2022-03-13] MEDS: AZITHROMYCIN IVPB 500 MG/250 ML BAG IVPB SCH (11:13)
[2022-03-13] MEDS: APIXABAN 5 MG TABLET PO SCH ×2 (11:14→21:49)
[2022-03-13] MEDS: BUDESONIDE/FORMETEROL FUMARATE 160/4.5 mcg INHALER IH SCH ×2 (11:24→21:50)
[2022-03-13] MEDS ORDERED: LEVALBUTEROL HCL 0.63 MG/3 ML VIAL.NEB. IH ONE (15:11)
[2022-03-13] MEDS ORDERED: INSULIN (NOVOLOG) ASPART 100 UNITS/ML 10ML VIAL SQ ONE (17:10)
[2022-03-13] MEDS ORDERED: INSULIN (NOVOLOG) ASPART 100 UNITS/ML 10ML VIAL ONE (21:09)
[2022-03-14] MEDS: methylPREDNISolone NA SUCC 40 MG/1 ML VIAL IVPUSH SCH ×2 (01:53→09:30)
[2022-03-14] MEDS: INSULIN (LEVEMIR) 100 UNITS/ML UNITS SQ SCH (06:34)
[2022-03-14] MEDS: FUROSEMIDE 40 MG/4 ML INJECTABLE VIAL IVPUSH SCH ×2 (06:34→13:15)
[2022-03-14] MEDS: INSULIN SLIDING SCALE (NOVOLOG) 1 VIAL SQ SCH ×2 (06:38→11:41)
[2022-03-14] MEDS: LEVALBUTEROL HCL 0.63 MG/3 ML VIAL.NEB. IH SCH ×2 (08:04→13:37)
[2022-03-14] MEDS: AZITHROMYCIN IVPB 500 MG/250 ML BAG IVPB SCH (09:29)
[2022-03-14] MEDS: APIXABAN 5 MG TABLET PO SCH (09:30)
[2022-03-14] MEDS: BUDESONIDE/FORMETEROL FUMARATE 160/4.5 mcg INHALER IH SCH (09:30)
[2022-03-14 10:50] LABS: HEMATOCRIT 44.7 % (35.4-49); LYMPH % 7.7 % (8-40); MCH 26.6 pg (25.7-33.7); MCHC 31.3 g/dl (32.0-35.9); MEAN CELL VOLUME 85.1 fl (80-96); MEAN PLT VOLUME 9.2 fl (7.5-11.1); MONO % 5.6 % (3.8-10.2); NEUT % 86.7 % (42.8-82.8); PLATELET COUNT 189 10^3/uL (134-434); RBC 5.25 M/mm3 (4.00-5.60); RDW 16.1 % (11.9-15.9); WHITE BLOOD COUNT 10.5 K/mm3 (4.0-10.0)
[2022-03-14 11:10] LABS: CHLORIDE 90 mmol/L (98-107); SODIUM 132 mmol/L (136-145)
[2022-03-14 11:20] LABS: ALBUMIN 3.4 g/dl (3.4-5.0); ANION GAP 14 MMOL/L (8-16); CALCIUM 8.7 mg/dL (8.5-10.1); CO2 29 mmol/L (21-32); MAGNESIUM 2.3 mg/dL (1.8-2.4)
[2022-03-14 11:23] LABS: CREATININE 1.3 mg/dL (0.55-1.3); PHOSPHOROUS 4.1 mg/dL (2.5-4.9); SGOT/AST 67 U/L (15-37); SGPT/ALT 107 U/L (13-61)
[2022-03-14 11:24] LABS: BILIRUBIN,TOTAL 0.6 mg/dL (0.2-1); TOT PROT 7.2 g/dl (6.4-8.2)
[2022-03-14 11:27] LABS: ALK PHOS 116 U/L (45-117)
[2022-03-14 11:34] LABS: GLUCOSE,RANDOM 493 mg/dL (74-106)
[2022-03-14] MEDS ORDERED: INSULIN (NOVOLOG) ASPART 100 UNITS/ML 10ML VIAL SQ ONE (12:37)
[2022-03-14 15:50] VITALS: BP 136/91; PULSE 91; RESP 18; TEMP 97.5
[2022-03-14] MEDS ORDERED: methylPREDNISolone NA SUCC 40 MG/1 ML VIAL IVPUSH SCH (22:00)
== END 2022-03-14 16:10 | disposition home health service (06) | DRG 140 ==
LOC: JER 22:48 → JERBED 03-11 02:10 → J8W 03-11 07:23
PROVIDERS: ADMIT Internal Medicine; ATTEND Internal Medicine
DX: J44.0 Chronic obstructive pulmonary disease with (acute) lower respiratory infection (principal); I50.30 Unspecified diastolic (congestive) heart failure; B97.4 Respiratory syncytial virus as the cause of diseases classified elsewhere; E11.65 Type 2 diabetes mellitus with hyperglycemia; Z68.41 Body mass index [BMI] 40.0-44.9, adult; E66.01 Morbid (severe) obesity due to excess calories; E87.70 Fluid overload, unspecified; R60.0 Localized edema; R74.01 Elevation of levels of liver transaminase levels; E78.5 Hyperlipidemia, unspecified; K21.9 Gastro-esophageal reflux disease without esophagitis
CPT/HCPCS: 0241U-QW; 36415; 71045-TC-FY; 76705-TC; 80053; 81003; 82550; 82803; 82962; 83735; 83880; 84100; 84484; 85025; 85027; 85610; 85730; 86705; 86803; 87086; 87340; 87517; 93005; 93010; 94761; 99291

== ENCOUNTER 2022-07-13 17:59 | Inpatient (IN) | payer OTHER ==
[2022-07-13] MEDS ORDERED: ALBUTEROL SO4 2.5/IPRATROPIUM 0.5 INH SOL 3 ML VIAL.NEB. NEB ONE ×2 (18:25→18:47)
[2022-07-13] MEDS ORDERED: DEXAMETHASONE SOD PHOSPHATE 10 MG/1 ML VIAL IVPUSH ONE (18:25)
[2022-07-13] MEDS ORDERED: DEXAMETHASONE SOD PHOSPHATE 10 MG/1 ML VIAL ONE (18:47)
[2022-07-13 18:50] LABS: BASO % 0.9 % (0-2.0); EOS % 4.2 % (0-4.5); HEMATOCRIT 41.3 % (35.4-49); HEMOGLOBIN 13.6 GM/dL (11.7-16.9); LYMPH % 13.9 % (8-40); MCH 28.1 pg (25.7-33.7); MCHC 32.9 g/dl (32.0-35.9); MEAN CELL VOLUME 85.6 fl (80-96); MEAN PLT VOLUME 9.5 fl (7.5-11.1); MONO % 10.4 % (3.8-10.2); NEUT % 70.6 % (42.8-82.8); PLATELET COUNT 168 10^3/uL (134-434); RBC 4.83 M/mm3 (4.00-5.60); RDW 16.3 % (11.9-15.9); WHITE BLOOD COUNT 6.4 K/mm3 (4.0-10.0)
[2022-07-13 19:14] LABS: POTASSIUM 3.9 mmol/L (3.5-5.1)
[2022-07-13 19:17] LABS: CALCIUM 8.5 mg/dL (8.5-10.1)
[2022-07-13] MEDS ORDERED: CEFTRIAXONE 1,000 MG in DEXTROSE 5%-WATER - 50 ML IVPB ONE (19:17)
[2022-07-13] MEDS ORDERED: AZITHROMYCIN IVPB 500 MG in DEXTROSE 5%-WATER - 250 ML IVPB ONE (19:17)
[2022-07-13 19:18] LABS: ALBUMIN 3.3 g/dl (3.4-5.0); BLOOD UREA NITROGEN 9.5 mg/dL (7-18)
[2022-07-13 19:21] LABS: CREATININE 0.8 mg/dL (0.55-1.3)
[2022-07-13 19:22] LABS: BILIRUBIN,TOTAL 0.5 mg/dL (0.2-1)
[2022-07-13] MEDS ORDERED: CEFTRIAXONE 1 GM/50 ML BAG ONE (19:22)
[2022-07-13 19:23] LABS: TOT PROT 6.8 g/dl (6.4-8.2)
[2022-07-13] MEDS ORDERED: AZITHROMYCIN IVPB 500 MG/250 ML BAG IVPB ONE (19:47)
[2022-07-13 19:54] LABS: INR 1.29 (0.83-1.09); PROTHROMBIN TIME (PATIENT) 14.9 SEC (9.7-13.0)
[2022-07-13 19:56] LABS: ACTIVATED PTT 32.6 SECONDS (25.2-36.5)
[2022-07-13] MEDS ORDERED: SODIUM CHLORIDE FOR INHALATION 3 ML VIAL.NEB IH ONE (21:35)
[2022-07-13] MEDS ORDERED: ACETAMINOPHEN 325 MG TABLET (FP) PO PRN (22:29)
[2022-07-13] MEDS ORDERED: ONDANSETRON 4 MG/2 ML VIAL IVPUSH PRN (22:32)
[2022-07-13] MEDS: BUDESONIDE/FORMETEROL FUMARATE 160/4.5 mcg INHALER IH SCH (23:29)
[2022-07-14] MEDS: APIXABAN 5 MG TABLET PO SCH ×3 (00:56→21:18)
[2022-07-14] MEDS: methylPREDNISolone NA SUCC 40 MG/1 ML VIAL IVPUSH SCH ×3 (03:00→17:38)
[2022-07-14 03:28] VITALS: BMI 42.5
[2022-07-14] MEDS ORDERED: FUROSEMIDE 40 MG TABLET (FP) PO SCH (06:00)
[2022-07-14] MEDS: INSULIN SLIDING SCALE (NOVOLOG) 1 VIAL SQ SCH ×4 (06:12→21:19)
[2022-07-14] MEDS: ALBUTEROL SO4 2.5/IPRATROPIUM 0.5 INH SOL 3 ML VIAL.NEB. NEB SCH ×4 (08:00→20:03)
[2022-07-14] MEDS ORDERED: FUROSEMIDE 40 MG/4 ML INJECTABLE VIAL IVPUSH ONE (08:12)
[2022-07-14] MEDS ORDERED: AZITHROMYCIN IVPB 250 MG in DEXTROSE 5%-WATER - 250 ML IVPB SCH (10:00)
[2022-07-14] MEDS ORDERED: CEFTRIAXONE 1 GM in DEXTROSE 5%-WATER - 50 ML IVPB SCH (10:00)
[2022-07-14] MEDS: TIOTROPIUM BROMIDE 2.5 MCG (SPIRIVA) RESPIMAT INHALER IH SCH (10:34)
[2022-07-14] MEDS: BUDESONIDE/FORMETEROL FUMARATE 160/4.5 mcg INHALER IH SCH ×2 (10:44→21:21)
[2022-07-14 11:21] LABS: HEMOGLOBIN 13.7 GM/dL (11.7-16.9); MCH 28.4 pg (25.7-33.7); MCHC 33.3 g/dl (32.0-35.9); MEAN CELL VOLUME 85.4 fl (80-96); MEAN PLT VOLUME 8.8 fl (7.5-11.1); PLATELET COUNT 187 10^3/uL (134-434); RDW 15.9 % (11.9-15.9)
[2022-07-14 11:42] LABS: POTASSIUM 3.7 mmol/L (3.5-5.1)
[2022-07-14 11:48] LABS: ALBUMIN 3.3 g/dl (3.4-5.0); CALCIUM 8.5 mg/dL (8.5-10.1)
[2022-07-14 11:52] LABS: CREATININE 0.9 mg/dL (0.55-1.3)
[2022-07-14 11:54] LABS: BILIRUBIN,TOTAL 0.4 mg/dL (0.2-1); TOT PROT 7.1 g/dl (6.4-8.2)
[2022-07-14] MEDS: AZITHROMYCIN 250 MG TABLET PO SCH (12:14)
[2022-07-14] MEDS: FUROSEMIDE 40 MG TABLET (FP) PO SCH (13:37)
[2022-07-14] MEDS: INSULIN (LEVEMIR) 100 UNITS/ML UNITS SQ SCH (21:18)
[2022-07-15] MEDS: methylPREDNISolone NA SUCC 40 MG/1 ML VIAL IVPUSH SCH ×3 (01:56→17:13)
[2022-07-15] MEDS: INSULIN SLIDING SCALE (NOVOLOG) 1 VIAL SQ SCH ×4 (06:14→21:19)
[2022-07-15] MEDS: FUROSEMIDE 40 MG TABLET (FP) PO SCH ×2 (06:14→13:36)
[2022-07-15] MEDS: ALBUTEROL SO4 2.5/IPRATROPIUM 0.5 INH SOL 3 ML VIAL.NEB. NEB SCH ×4 (08:30→20:04)
[2022-07-15] MEDS: APIXABAN 5 MG TABLET PO SCH ×2 (09:23→21:15)
[2022-07-15] MEDS: INSULIN (LEVEMIR) 100 UNITS/ML UNITS SQ SCH ×2 (09:23→21:20)
[2022-07-15] MEDS: AZITHROMYCIN 250 MG TABLET PO SCH (09:24)
[2022-07-15] MEDS: BUDESONIDE/FORMETEROL FUMARATE 160/4.5 mcg INHALER IH SCH ×2 (09:24→21:16)
[2022-07-15] MEDS: TIOTROPIUM BROMIDE 2.5 MCG (SPIRIVA) RESPIMAT INHALER IH SCH (09:24)
[2022-07-15 11:26] LABS: BASO % 0.1 % (0-2.0); HEMATOCRIT 42.7 % (35.4-49); HEMOGLOBIN 13.7 GM/dL (11.7-16.9); LYMPH % 5.8 % (8-40); MCH 27.6 pg (25.7-33.7); MCHC 32.2 g/dl (32.0-35.9); MEAN CELL VOLUME 85.8 fl (80-96); MEAN PLT VOLUME 9.6 fl (7.5-11.1); MONO % 4.6 % (3.8-10.2); NEUT % 89.5 % (42.8-82.8); PLATELET COUNT 222 10^3/uL (134-434); RBC 4.97 M/mm3 (4.00-5.60); RDW 16.3 % (11.9-15.9); WHITE BLOOD COUNT 11.6 K/mm3 (4.0-10.0)
[2022-07-15 11:54] LABS: POTASSIUM 3.8 mmol/L (3.5-5.1)
[2022-07-15 12:00] LABS: ALBUMIN 3.4 g/dl (3.4-5.0); BLOOD UREA NITROGEN 22.8 mg/dL (7-18); CALCIUM 8.7 mg/dL (8.5-10.1)
[2022-07-15 12:01] LABS: MAGNESIUM 1.8 mg/dL (1.8-2.4)
[2022-07-15 12:03] LABS: CREATININE 1.1 mg/dL (0.55-1.3); PHOSPHOROUS 2.5 mg/dL (2.5-4.9); TOT PROT 7.3 g/dl (6.4-8.2)
[2022-07-15 12:07] LABS: BILIRUBIN,TOTAL 0.5 mg/dL (0.2-1)
[2022-07-15] MEDS ORDERED: FAMOTIDINE 10 MG TABLET PO ONE (20:14)
[2022-07-16] MEDS: methylPREDNISolone NA SUCC 40 MG/1 ML VIAL IVPUSH SCH ×3 (01:45→17:11)
[2022-07-16] MEDS: FUROSEMIDE 40 MG TABLET (FP) PO SCH ×2 (05:28→13:37)
[2022-07-16] MEDS: INSULIN SLIDING SCALE (NOVOLOG) 1 VIAL SQ SCH ×4 (06:34→21:27)
[2022-07-16] MEDS: ALBUTEROL SO4 2.5/IPRATROPIUM 0.5 INH SOL 3 ML VIAL.NEB. NEB SCH ×4 (08:16→20:05)
[2022-07-16] MEDS: AZITHROMYCIN 250 MG TABLET PO SCH (09:31)
[2022-07-16] MEDS: APIXABAN 5 MG TABLET PO SCH ×2 (09:31→21:22)
[2022-07-16] MEDS: INSULIN (LEVEMIR) 100 UNITS/ML UNITS SQ SCH ×2 (09:33→21:25)
[2022-07-16] MEDS: TIOTROPIUM BROMIDE 2.5 MCG (SPIRIVA) RESPIMAT INHALER IH SCH (09:34)
[2022-07-16] MEDS: BUDESONIDE/FORMETEROL FUMARATE 160/4.5 mcg INHALER IH SCH ×2 (09:37→21:22)
[2022-07-16] MEDS: FAMOTIDINE 10 MG TABLET PO SCH (10:42)
[2022-07-16] MEDS ORDERED: MELATONIN 5 MG TABLETS PO ONE (23:08)
[2022-07-17] MEDS: methylPREDNISolone NA SUCC 40 MG/1 ML VIAL IVPUSH SCH ×3 (01:12→21:21)
[2022-07-17] MEDS: FUROSEMIDE 40 MG TABLET (FP) PO SCH ×2 (05:36→13:56)
[2022-07-17] MEDS: INSULIN SLIDING SCALE (NOVOLOG) 1 VIAL SQ SCH ×4 (06:12→21:22)
[2022-07-17] MEDS: ALBUTEROL SO4 2.5/IPRATROPIUM 0.5 INH SOL 3 ML VIAL.NEB. NEB SCH ×4 (08:00→20:02)
[2022-07-17] MEDS: BUDESONIDE/FORMETEROL FUMARATE 160/4.5 mcg INHALER IH SCH ×2 (09:41→21:30)
[2022-07-17] MEDS: AZITHROMYCIN 250 MG TABLET PO SCH (09:42)
[2022-07-17] MEDS: APIXABAN 5 MG TABLET PO SCH ×2 (09:42→21:30)
[2022-07-17] MEDS: FAMOTIDINE 10 MG TABLET PO SCH (09:42)
[2022-07-17] MEDS: INSULIN (LEVEMIR) 100 UNITS/ML UNITS SQ SCH ×2 (09:45→21:21)
[2022-07-17] MEDS: TIOTROPIUM BROMIDE 2.5 MCG (SPIRIVA) RESPIMAT INHALER IH SCH (11:13)
[2022-07-17] MEDS ORDERED: methylPREDNISolone NA SUCC 40 MG/1 ML VIAL IVPUSH SCH (14:15)
[2022-07-17] MEDS ORDERED: MELATONIN 5 MG TABLETS PO SCH (22:00)
[2022-07-18] MEDS: FUROSEMIDE 40 MG TABLET (FP) PO SCH ×2 (05:31→13:45)
[2022-07-18] MEDS: INSULIN SLIDING SCALE (NOVOLOG) 1 VIAL SQ SCH ×3 (06:09→16:21)
[2022-07-18 06:21] VITALS: RESP 18
[2022-07-18] MEDS: ALBUTEROL SO4 2.5/IPRATROPIUM 0.5 INH SOL 3 ML VIAL.NEB. NEB SCH ×3 (07:45→15:10)
[2022-07-18 08:25] LABS: BASO % 0.2 % (0-2.0); HEMATOCRIT 41.4 % (35.4-49); HEMOGLOBIN 13.9 GM/dL (11.7-16.9); LYMPH % 7.3 % (8-40); MCH 28.5 pg (25.7-33.7); MCHC 33.5 g/dl (32.0-35.9); MEAN CELL VOLUME 85.1 fl (80-96); MEAN PLT VOLUME 9.9 fl (7.5-11.1); MONO % 4.4 % (3.8-10.2); NEUT % 88.1 % (42.8-82.8); PLATELET COUNT 187 10^3/uL (134-434); RBC 4.87 M/mm3 (4.00-5.60); RDW 15.8 % (11.9-15.9); WHITE BLOOD COUNT 10.3 K/mm3 (4.0-10.0)
[2022-07-18 08:31] LABS: POTASSIUM 3.7 mmol/L (3.5-5.1)
[2022-07-18 08:38] LABS: ALBUMIN 3.3 g/dl (3.4-5.0); CALCIUM 8.4 mg/dL (8.5-10.1)
[2022-07-18 08:39] LABS: BLOOD UREA NITROGEN 32.2 mg/dL (7-18)
[2022-07-18 08:43] LABS: BILIRUBIN,TOTAL 0.6 mg/dL (0.2-1); TOT PROT 6.8 g/dl (6.4-8.2)
[2022-07-18] MEDS: TIOTROPIUM BROMIDE 2.5 MCG (SPIRIVA) RESPIMAT INHALER IH SCH (09:17)
[2022-07-18] MEDS: BUDESONIDE/FORMETEROL FUMARATE 160/4.5 mcg INHALER IH SCH (09:17)
[2022-07-18] MEDS: FAMOTIDINE 10 MG TABLET PO SCH (09:18)
[2022-07-18] MEDS: APIXABAN 5 MG TABLET PO SCH (09:18)
[2022-07-18] MEDS: methylPREDNISolone NA SUCC 40 MG/1 ML VIAL IVPUSH SCH (09:18)
[2022-07-18] MEDS: INSULIN (LEVEMIR) 100 UNITS/ML UNITS SQ SCH (09:20)
[2022-07-18 15:50] VITALS: BP 132/72; PULSE 84; TEMP 98.3
== END 2022-07-18 17:35 | disposition home or self-care (01) | DRG 194 ==
LOC: JER 17:59 → JERBED 22:33 → J5S 07-14 00:39 → UNDODISIN 07-18 16:53
PROVIDERS: ADMIT Internal Medicine
DX: I11.0 Hypertensive heart disease with heart failure (principal); E66.01 Morbid (severe) obesity due to excess calories; J44.1 Chronic obstructive pulmonary disease with (acute) exacerbation; E78.5 Hyperlipidemia, unspecified; K21.9 Gastro-esophageal reflux disease without esophagitis; I50.33 Acute on chronic diastolic (congestive) heart failure; E11.65 Type 2 diabetes mellitus with hyperglycemia
CPT/HCPCS: 0241U-QW; 36415; 71045-TC-FY; 71250-TC; 80053; 82962; 83036; 83735; 83880; 84100; 84484; 85025; 85027; 85610; 85730; 87070; 87186; 87205; 93005; 93010; 93306-TC; 94640; 94761; 97116-GP; 97161-GP; 99285-25; J1100

== ENCOUNTER 2023-12-08 23:19 | Emergency (ER) | payer MEDICARE, OTHER ==
[2023-12-08 23:55] VITALS: BMI 38.5
[2023-12-09] MEDS ORDERED: ACETAMINOPHEN 325 MG TABLET (FP) ONE (01:20)
[2023-12-09] MEDS: ACETAMINOPHEN 500 MG TABLET (FP) PO ONE (01:39)
[2023-12-09 07:25] LABS: BASO % 0.4 % (0-2.0); EOS % 0.7 % (0-4.5); HEMATOCRIT 45.3 % (35.4-49); HEMOGLOBIN 14.4 GM/dL (11.7-16.9); LYMPH % 10.4 % (8-40); MCH 27.7 pg (25.7-33.7); MCHC 31.8 g/dl (32.0-35.9); MEAN CELL VOLUME 87.1 fl (80-96); MEAN PLT VOLUME 8.7 fl (7.5-11.1); MONO % 5.8 % (3.8-10.2); NEUT % 82.7 % (42.8-82.8); PLATELET COUNT 200 10^3/uL (134-434); RDW 16.1 % (11.9-15.9); WHITE BLOOD COUNT 13.1 K/mm3 (4.0-10.0)
[2023-12-09 07:30] LABS: INR 1.13 (0.83-1.09); PROTHROMBIN TIME (PATIENT) 12.7 SEC (9.7-13.0)
[2023-12-09 07:33] LABS: ACTIVATED PTT 32.8 SECONDS (25.2-36.5)
[2023-12-09] MEDS ORDERED: morphine SULFATE 4 MG/ML VIAL ONE (07:57)
[2023-12-09] MEDS ORDERED: ONDANSETRON 4 MG/2 ML VIAL ONE (07:57)
[2023-12-09] MEDS: morphine CARPU-JECT 2 MG/1 ML DISP.SYRIN IVPUSH ONE (08:02)
[2023-12-09 08:03] LABS: POTASSIUM 4.2 mmol/L (3.5-5.1)
[2023-12-09] MEDS: ONDANSETRON 4 MG/2 ML VIAL IVPUSH ONE (08:04)
[2023-12-09 08:11] LABS: ALBUMIN 3.4 g/dl (3.4-5.0); BILIRUBIN,TOTAL 0.5 mg/dL (0.2-1); BLOOD UREA NITROGEN 15.6 mg/dL (7-18); CALCIUM 8.9 mg/dL (8.5-10.1)
[2023-12-09 08:14] LABS: CREATININE 1.1 mg/dL (0.55-1.3)
[2023-12-09 08:16] LABS: TOT PROT 7.3 g/dl (6.4-8.2)
[2023-12-09 10:46] VITALS: BP 131/81; PULSE 97; RESP 20; TEMP 97.8
== END 2023-12-09 10:54 | disposition short-term general hospital (02) ==
LOC: JER 23:19
PROC: 3E033NZ Introduction of Analgesics, Hypnotics, Sedatives into Peripheral Vein, Percutaneous Approach (ICD-10-PCS; principal; 2023-12-09)
PROC: 3E033GC Introduction of Other Therapeutic Substance into Peripheral Vein, Percutaneous Approach (ICD-10-PCS; 2023-12-09)
DX: S22.078A Other fracture of T9-T10 vertebra, initial encounter for closed fracture (principal); M54.6 Pain in thoracic spine; W18.39XA Other fall on same level, initial encounter; Y92.009 Unspecified place in unspecified non-institutional (private) residence as the place of occurrence of the external cause; Z20.822 Contact with and (suspected) exposure to COVID-19
CPT/HCPCS: 0241U-QW; 36415; 70450-TC; 71045-TC-FY; 72125-TC; 72128-TC; 72170-TC-FY; 80053; 85025; 85610; 85730; 86850; 86900; 86901; 93005; 93010; 96374; 96375; 99285-25

== ENCOUNTER 2024-03-12 13:38 | Emergency (ER) | payer MEDICARE, OTHER ==
[2024-03-12 13:43] VITALS: BP 131/70; PULSE 84; RESP 18; TEMP 97.4; BMI 34.2
[2024-03-12] MEDS ORDERED: CEPHALEXIN MONOHYDRATE 500 MG CAPSULE (UD) ONE (17:56)
[2024-03-12] MEDS: CEPHALEXIN MONOHYDRATE 500 MG CAPSULE (UD) PO ONE (18:00)
[2024-03-12 18:01] LABS: BASO % 0.6 % (0-2.0); EOS % 2.7 % (0-4.5); HEMATOCRIT 35.3 % (35.4-49); HEMOGLOBIN 10.9 GM/dL (11.7-16.9); LYMPH % 13.1 % (8-40); MCH 24.9 pg (25.7-33.7); MCHC 30.8 g/dl (32.0-35.9); MEAN CELL VOLUME 80.9 fl (80-96); MEAN PLT VOLUME 8.4 fl (7.5-11.1); MONO % 9.4 % (3.8-10.2); NEUT % 74.2 % (42.8-82.8); PLATELET COUNT 238 10^3/uL (134-434); RBC 4.37 M/mm3 (4.00-5.60); RDW 17.2 % (11.9-15.9); WHITE BLOOD COUNT 8.1 K/mm3 (4.0-10.0)
[2024-03-12 18:07] LABS: INR 1.34 (0.83-1.09)
[2024-03-12 18:09] LABS: ACTIVATED PTT 31.6 SECONDS (25.2-36.5)
[2024-03-12 18:18] LABS: POTASSIUM 3.4 mmol/L (3.5-5.1)
[2024-03-12 18:20] LABS: BLOOD UREA NITROGEN 14.8 mg/dL (7-18)
[2024-03-12 18:24] LABS: CREATININE 0.9 mg/dL (0.55-1.3)
[2024-03-12 18:25] LABS: BILIRUBIN,TOTAL 0.6 mg/dL (0.2-1); TOT PROT 7.1 g/dl (6.4-8.2)
== END 2024-03-12 20:52 | disposition home or self-care (01) ==
LOC: JER 13:38
DX: L03.116 Cellulitis of left lower limb (principal); M79.89 Other specified soft tissue disorders
CPT/HCPCS: 36415; 80053; 85025; 85610; 85730; 93970-TC; 99284-25